=== PATIENT | male | born 1980 | race Two or more races ===

== ENCOUNTER → 2021-07-01 | Outpatient (CLI) | payer OTHER ==
--- NOTE | 2021-07-01 14:16 | RAD ---
CT HEAD WITHOUT CONTRAST 07/01/2021 12:26 PM Indication: Head trauma Comparison: None Procedure: Multidetector CT imaging of the head was performed without the administration of contrast. Findings: There is no evidence of acute intracranial hemorrhage. There is no evidence of acute territ orial infarction. Please note that CT is limited for evaluation of acute ischemia. No mass effect or midline shift is identified . The ventricles and basilar cisterns have an appropriate appearance. No abnormal extra-axial fluid collections are seen. No acute osseous changes are identified. Impression: No evidence of acute intracranial abnormality CT DOSING PQRS STATEMENT: One or more of the following individualized dose reduction techniques were utilized for this examinat ion: 1. Automated exposure control 2. Adjustment of the mA and/or kV according to patient size 3. Use of iterative reconstruction technique Electronically signed by: Isidro Nolan MD (07/01/2021 2:14 PM) [id number]
== END ==
LOC: CT 12:08
PROVIDERS: ATTEND Preventive Medicine Occupational Medicine
DX: I67.82 Cerebral ischemia (principal); M77.11 Lateral epicondylitis, right elbow
CPT/HCPCS: 70450